=== PATIENT | male | born 1990 | race Caucasian/White ===

== ENCOUNTER 2017-06-02 14:55 | Emergency (ER) | payer OTHER ==
[~2017-06-02] VITALS: Ht 180.3 cm; Wt 106.0 kg
[2017-06-02 14:58] VITALS: TEMP 37.1; Ht 180.3 cm; Wt 106.0 kg
--- NOTE | 2017-06-02 15:54 | EMERGENCY ROOM VISIT NOTE ---
ED Visit Note First contact with patient: 15:04 CHIEF COMPLAINT: Body Fluid exposure HPI: This 26-year-old male presents to the Emergency Department ambulatory for evaluation of a body fluid exposure which occurred just prior to arrival. 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 He states that an inmate through urine at him. He states that the urine splashed his left eye. There was no obvious blood in the urine. He does not know the status of the source patient. He believes his tetanus is up-to-date. ALLERGIES: Shellfish MEDICATIONS: No chronic medications PMH: No significant past medical history. SOCIAL HISTORY: The patient lives locally with his . He is a smoker and admits to occasional alcohol use. Physical Exam: VITALS: Nursing notes reviewed and vitals are stable. GENERAL: This is a 26-year-old male, in no acute distress, well developed, well nourished. EYES: PERRLA, EOMs intact. No conjunctival injection. SKIN: Warm and dry with good turgor. ED COURSE: I examined the patient. I do not feel that there is a significant risk for HIV or hepatitis transmission given his exposure. I did draw baseline testing in case this is needed for his employee health follow-up. I offered him postexposure prophylaxis, although do not feel this is necessary as this is not true they significant exposure. The patient declined. He will follow-up with his employee health provider as needed. The patient was discharged in stable condition. Blood Pressure Screening: Patient was found to have a slightly elevated blood pressure due to circumstances. I do not believe that the patient requires hypertension monitoring. Medication reconciliation: I attest that I have personally reviewed the patient 's current medication list. Impression: Body fluid exposure Current/Historical Medications No Active Prescriptions or Reported Meds Allergies Coded Allergies: Shellfish (Verified Allergy, Intermediate, Hives, 06/02/17) Vital Signs Date Time Temp Pulse Resp B/P (MAP) Pulse Ox O2 Delivery O2 Flow Rate FiO2 06/02/17 16:10 88 16 149/77 97 06/02/17 14:58 37.1 88 16 149/77 97 Room Air Laboratory Results Test 06/02/17 15:58 Hepatitis B Surface Antigen NEG (NEG) Hepatitis B Surface Antibody POS Hepatitis C Antibody NEG (NEG) HIV (1&2) Ab and P24 Ag, 4th Gener NEG (NEG) Departure Information Dispostion Home / Self-Care Condition GOOD Prescriptions No Active Prescriptions or Reported Meds Referrals No Doctor, Assigned (PCP) Patient Instructions My Orbital Traction Additional Instructions Follow-up with your employee health provider as needed for any follow-up testing and treatment.
[2017-06-02 16:10] VITALS: BP 149/77; PULSE 88; O2SAT 97
[2017-06-02 17:04] LABS: HEPATITIS B AB POS
== END 2017-06-02 16:12 | disposition home or self-care (01) ==
LOC: C.EDB 14:56 → C.EDD 16:12
DX: Z77.21 Contact with and (suspected) exposure to potentially hazardous body fluids (principal); Y92.149 Unspecified place in prison as the place of occurrence of the external cause; Y99.0 Civilian activity done for income or pay; F17.200 Nicotine dependence, unspecified, uncomplicated